=== PATIENT | female | born 1950 | race Two or more races ===

== ENCOUNTER 2022-07-06 22:36 | Emergency (ER) | payer MEDICARE, MEDICAID ==
[~2022-07-06] VITALS: Ht 144.8 cm; Wt 45.6 kg
[2022-07-06] MEDS ORDERED: IOHEXOL 350 MG/ML 100 ML VIAL ONE (22:45)
[2022-07-06] MEDS ORDERED: SODIUM CHLORIDE 0.9% 100 ML ONE (22:45)
[2022-07-06 22:59] LABS: BASOPHILS % (AUTO) 1.1 % (0.0-2.0); EOSINOPHILS % (AUTO) 2.3 % (1.0-6.0); HEMATOCRIT 29.5 % (36-46); HEMOGLOBIN 9.8 g/dL (12.0-16.0); LYMPHOCYTES # (AUTO) 2.3 K/uL (1.0-4.8); LYMPHOCYTES % (AUTO) 24.9 % (22.0-44.0); MEAN CORPUSCULAR HGB CONC 33.2 G/dL (31.0-37.0); MEAN CORPUSCULAR VOLUME 97 fL (80-100); MONOCYTES # (AUTO) 0.7 K/uL (0.1-1.0); MONOCYTES % (AUTO) 7.8 % (2.0-9.0); NEUTROPHILS % (AUTO) 63.9 % (40.0-70.0); PLATELET COUNT (AUTO) 290 K/uL (150-450); RED BLOOD CELL COUNT(AUTO) 3.05 MIL/uL (4.00-5.20); RED CELL DISTRIBUTION WIDTH 15.6 % (11.5-14.5)
[2022-07-06] MEDS ORDERED: NiCARDipine HCL 25 MG in DEXTROSE 5%-WATER 240 ML IV PRN (23:00)
[2022-07-06 23:07] LABS: PROTHROMBIN TIME 10.6 SEC (9.4-11.6)
[2022-07-06] MEDS ORDERED: MIDAZOLAM HCL 100 MG in SODIUM CHLORIDE 0.9% 180 ML IV PRN (23:15)
[2022-07-06 23:18] LABS: CALCIUM, TOTAL 9.5 mg/dL (8.8-10.5); CREATININE 4.95 mg/dL (0.60-1.30); POTASSIUM 5.2 mmol/L (3.5-5.1)
[2022-07-06 23:23] LABS: ALBUMIN 4.1 g/dL (3.4-5.0); BILIRUBIN,TOTAL 0.3 mg/dL (0.1-1.0); TOTAL PROTEIN, SERUM 8.5 g/dL (6.4-8.2)
[2022-07-06] MEDS ORDERED: LABETALOL HCL 5 MG/ML 20 ML VIAL IVP ONE ×2 (23:23→23:45)
[2022-07-06] MEDS ORDERED: ALTEPLASE IV ONE ×2 (23:30)
[2022-07-06] MEDS ORDERED: ALTEPLASE PER STROKE PROTOCOL CLINICAL ONE (23:30)
[2022-07-06] MEDS ORDERED: WATER FOR INJECTION STERILE IV ONE ×2 (23:30)
[2022-07-06] MEDS ORDERED: METO-416 PO (23:32)
[2022-07-06] MEDS ORDERED: BUME2TAB PO (23:32)
[2022-07-06] MEDS ORDERED: HYDR25TA84 PO (23:32)
[2022-07-06] MEDS ORDERED: NIFE90TA45 PO (23:32)
[2022-07-06] MEDS ORDERED: LEVO75TA10 PO (23:32)
[2022-07-06] MEDS ORDERED: CALC0.253 PO (23:32)
[2022-07-06] MEDS ORDERED: LOSA-382 PO (23:32)
[2022-07-06 23:34] LABS: COVID AG,FIA SOURCE NASAL SWAB
[2022-07-06 23:43] LABS: APPEARANCE,URINE CLEAR (CLEAR); BILIRUBIN,URINE NEGATIVE (NEGATIVE); GLUCOSE, URINE (UA) NEGATIVE (NEGATIVE); KETONES,URINE NEGATIVE (NEGATIVE); LEUKOCYTE ESTERASE ,URINE LARGE (NEGATIVE); NITRATE,URINE NEGATIVE (NEGATIVE); OCCULT BLOOD,URINE NEGATIVE (NEGATIVE); PROTEIN,URINE 30-70 mg/dL (NEGATIVE); SPECIFIC GRAVITIY, URINE 1.007 (1.003-1.030); UROBILINOGEN,URINE <=1.0 mg/dL (<=1.0)
[2022-07-06 23:48] LABS: AMPHET/METH SCREEN,URINE NEGATIVE (NEGATIVE); BARBITURATE SCREEN, URINE NEGATIVE (NEGATIVE); BENZODIAZEPINES SCREEN,URINE NEGATIVE (NEGATIVE); CANNABINOID SCREEN,URINE NEGATIVE (NEGATIVE); COCAINE SCREEN,URINE NEGATIVE (NEGATIVE); METHADONE SCREEN, URINE NEGATIVE (NEGATIVE); OPIATE SCREEN,URINE NEGATIVE (NEGATIVE)
[2022-07-06 23:50] LABS: PHENCYCLIDINE SCREEN,URINE NEGATIVE (NEGATIVE)
[2022-07-06 23:52] LABS: BACTERIA,URINE Few /HPF (None Seen); RBC,URINE 0-2 /HPF (0-2); SQUAMOUS EPITHELIAL CELL,UR Rare /LPF (None Seen)
[2022-07-06 23:58] LABS: INFLUENZA TYPE A NEGATIVE FOR TYPE A (NEGATIVE); INFLUENZA TYPE B NEGATIVE FOR TYPE B (NEGATIVE)
[2022-07-07 00:25] VITALS: BP 139/57
[2022-07-07] MEDS ORDERED: ETOMIDATE 2 MG/ML 10 ML VIAL IV ONE (22:39)
== END 2022-07-07 00:45 | disposition short-term general hospital (02) ==
LOC: EMS 22:38
DX: I63.9 Cerebral infarction, unspecified (principal); I65.1 Occlusion and stenosis of basilar artery; Z20.822 Contact with and (suspected) exposure to COVID-19
CPT/HCPCS: 99291; 70496; 31500; 96365; 71045; 96375; 87426; 80053; 81001; 83605; 84484; 85025; 85610; 85730; 87804; 86850; 86900; 86901; 36415; 87086; 87186; 70498; 82948; 93005; 80307; 84145; 70450; 94002; 37195; J3490 ×3; Q9967; J7060; J7050 ×2; J2997 ×2; J2250; 51702